=== PATIENT | female | born 1955 | race Hispanic/Latino ===

== ENCOUNTER 2021-10-31 12:47 | Outpatient (CLI) | payer MEDICARE | END 2021-10-31 12:48 | disposition home or self-care (01) | LOC: BICULT 12:47 | PROVIDERS: ATTEND Family Medicine | DX: M79.604 Pain in right leg (principal); E11.51 Type 2 diabetes mellitus with diabetic peripheral angiopathy without gangrene; M79.605 Pain in left leg; I87.8 Other specified disorders of veins | CPT/HCPCS: 71045; 93970 ==

== ENCOUNTER 2024-06-13 13:58 | Outpatient (CLI) | payer OTHER | END 2024-06-13 13:59 | disposition home or self-care (01) | LOC: BICMAMMO 13:58 | PROVIDERS: ATTEND Family Medicine | DX: Z12.31 Encounter for screening mammogram for malignant neoplasm of breast (principal); Z80.3 Family history of malignant neoplasm of breast | CPT/HCPCS: 77063; 77067 ==

== ENCOUNTER → 2025-05-26 | Day surgery (SDC) | payer OTHER ==
[~2025-05-26] MED LIST: Lidocaine 1% w/Epinephrine 1:100K 20 ML VIAL ONE; Sodium Bicarbonate 2.5 MEQ/5 ML SDV ONE
[2025-05-26 08:47] LABS: #Basophils Less than 0.03 10x3/uL (0.0-0.2); #Eosinophils 0.29 10x3/uL (0.0-0.7); #Monocytes 0.58 10x3/uL (0.11-0.59); #Neutrophils 3.68 10x3/uL (1.40-6.50); %Basophils 0.3 % (0.0-1.0); %Eosinophils 4.0 % (0.0-10.0); %Lymphocytes 36.1 % (21.0-51.0); %Monocytes 8.1 % (0.0-10.0); %Neutrophils 51.4 % (42.0-75.0); Hematocrit 35.3 % (36.0-47.0); Hemoglobin 11.5 g/dL (12.0-16.0); Mean Corpuscular Hemoglobin 28.0 pg (27.0-31.0); Mean Corpuscular Volume 85.9 fL (78.0-98.0); Platelet Count 218 10x3/uL (130-400); Red Blood Cell (RBC) Count 4.11 mill/uL (4.20-5.40); White Blood Cell (WBC) Count 7.17 10x3/uL (4.8-10.8)
[2025-05-26 08:56] LABS: INR-International Normal Ratio 1.1; PTT 42.4 sec (22.9-36.1); Prothrombin Time 14.6 sec (12.0-14.7)
[2025-05-26 12:35] LABS: Platelet Adequacy Comment Platelets Normal; RBC Morphology Within Normal Limits; Smudge Cells 3.4 %
== END ==
LOC: CT 08:27
PROVIDERS: ATTEND Internal Medicine Hematology & Oncology
PROC: 079T3ZX Drainage of Bone Marrow, Percutaneous Approach, Diagnostic (ICD-10-PCS; principal; 2025-05-26)
DX: D47.2 Monoclonal gammopathy (principal); E55.9 Vitamin D deficiency, unspecified; I10 Essential (primary) hypertension; E11.9 Type 2 diabetes mellitus without complications; E78.5 Hyperlipidemia, unspecified; D64.9 Anemia, unspecified; F41.9 Anxiety disorder, unspecified; F32.A Depression, unspecified
CPT/HCPCS: 38222; 77002; 77012; 85025; 85097; 85610; 85730; C1830; 36415; 88184; 88237; 88264; 88280; 88305; 88311; 88313; 88341; 88342; 88365; J2250; J3010